=== PATIENT | female | born 1980 | race Caucasian/White ===

== ENCOUNTER 2021-07-16 16:36 | Emergency (ER) | payer MEDICAID ==
[~2021-07-16] VITALS: Ht 157.5 cm; Wt 66.4 kg
[2021-07-16 16:52] VITALS: BP 109/77
== END 2021-07-16 17:15 | disposition home or self-care (01) ==
LOC: ER 16:37
DX: U07.1 COVID-19 (principal); R50.9 Fever, unspecified; Z56.0 Unemployment, unspecified
CPT/HCPCS: 36415; 99283; U0003; U0005

== ENCOUNTER 2021-09-12 14:27 | Emergency (ER) | payer MEDICAID ==
[~2021-09-12] VITALS: Ht 157.5 cm; Wt 61.0 kg
[2021-09-12 15:46] VITALS: BP 116/69
[2021-09-12] MEDS ORDERED: PARO30TA4 PO (18:21)
[2021-09-12] MEDS ORDERED: TRAZ-256 PO (18:21)
== END 2021-09-12 18:41 | disposition home or self-care (01) ==
LOC: ER 14:27
DX: Z76.0 Encounter for issue of repeat prescription (principal); Z56.0 Unemployment, unspecified; Z88.8 Allergy status to other drugs, medicaments and biological substances; Z79.899 Other long term (current) drug therapy
CPT/HCPCS: 99281; 99283